=== PATIENT | male | born 1980 | race Caucasian/White ===

== ENCOUNTER 2018-06-27 14:26 | Outpatient (CLI) | payer BC, SELFPAY ==
--- NOTE | 2018-06-27 14:22 | DI.RAD_ITS ---
SYMPTOMS/DIAGNOSIS: LT KNEE PAIN, H/O TUBERCLE CONTUSION LEFT KNEE: Weight bearing views were performed. Comparison is made with left tibia and fibula dated [id number]. There is some swelling anterior to the tibial tubercle. There is no soft tissue calcification or focal bony prominence. No joint effusion is seen. The joint spaces are well maintained. IMPRESSION: Soft tissue swelling anterior to the tibial tubercle.
== END 2018-06-27 14:46 ==
PROVIDERS: PCP Internal Medicine; Visit Provider Student in an Organized Health Care Education/Training Program
DX: M25.562 Pain in left knee (principal); M79.89 Other specified soft tissue disorders
CPT/HCPCS: 73560

== ENCOUNTER 2018-07-12 10:10 | Day surgery (SDC) | payer BC, SELFPAY ==
[2018-07-12 10:35] VITALS: BP 119/73; PULSE 56; RESP 16; TEMP 36.5; O2SAT 98
[2018-07-12] MEDS: Lactated Ringers 1,000 ML 70 ML IV ×2 (11:10→14:31)
[2018-07-12] MEDS: ACETAMINOPHEN 1,000 MG/100 ML BTL 400 MG (11:51)
[2018-07-12] MEDS: Bupivacaine 0.25% Pres-Free 30 ML VIAL (13:35)
[2018-07-12] MEDS: Bupivacaine LIPOSOME/PF 133 MG/10 ML VIAL IJ ×2 (13:35→14:32)
[2018-07-12] MEDS: Lidocaine 1% Pres-Free 5 ML VIAL (13:54)
--- NOTE | 2018-07-12 14:01 | HERN_PTH ---
PATIENT: Elliot Bangura LOC: [facility] U#:[id number] AGE/SX: 38/M ROOM: RE07/12/[address]: Sundeep Mckinley DO : 1980 BED: DIS: 07/12/2018 SPEC #: [id number] RECD: 07/12/18 17:59 STATUS: SHIVAM REJulián #: [id number] JOANNA: 07/12/18 14:[address]: Sundeep Mckinley DEPT: Surgical Specimen RECD BY: Jodi Luna ENTERED: 07/12/18 18:00 SP TYPE: Hernia Sac OTHR DR: Denver Schumacher Tissues: 1 - HERNIA SAC, INGUINAL Procedures: GROSS LEVEL 1 Comments: [id number]
--- NOTE | 2018-07-12 14:47 | W.PM.OP ---
Date of service: 07/12/18 Time of Service: 14:48 Operative Note DATE OF PROCEDURE: 07/12/18 PRE-OP DIAGNOSIS: Right inguinal hernia POST-OP DIAGNOSIS: other (Right indirect inguinal hernia) PROCEDURE: Open Right Inguinal hernia repair SURGEON: Sundeep Mckinley CIRCUIT COURT JUDGE: Belen Bustamante ANESTHESIA: GETA (Via LMA: Erinn Medeiors CRNA; ASA 2 Mallampati class II) and local (TAP block; 1% lidocaine, 1.3% Exparel, and 0.5% Marcaine) ESTIMATED BLOOD LOSS: 1 PATHOLOGY: other (Hernia sac) COMPLICATIONS: None Patient was transported to: PACU Patient's condition: stable Implants: [employer] pro-heel layer anatomic right mesh lot number: [id number] Indications: 38 y/o male presents with complaints of a hernia near his right groin. He reports that this has been present for approximately 1 year. He denies noting any incident that may have caused the hernia. He noticed it one day in the mirror. He reports that he feels the hernia is progressively worsening and with activities such as performing firewood, at times he needs to take breaks and reduce the hernia secondary to discomfort. He denies the area ever becoming painful, firm to palpation or warm. He had a previous inguinal hernia repair on his left side. His current symptoms are similar to when he had his left inguinal hernia. I reviewed the procedure for open repair of an inguinal hernia, and discussed the risks of the procedure with him. All his questions were answered to his satisfaction, and no promises were made or guarantees given. Findings: Exploring the right inguinal canal, a indirect inguinal hernia sac was identified there is no evidence of a direct hernia or femoral hernia. The hernia was subsequently repaired Procedure Description: The patient was brought to the operating room. A time-out was completed verifying correct patient , procedure, site , allergies, medications, positioning, implants, and fire risk, prior to beginning the procedure. General anesthesia via LMA was induced. The right groin was prepped with chloraprep, and draped in the standard sterile fashion. The pubic tubercle, and anterior superior iliac spine (ASIS) were marked. A skin incision was marked starting just laterally to the pubic tubercle in a linear oblique fashion toward the ASIS. A field block was produced by injecting local along the proposed skin incision. Additional local was injected as needed during the case. I began by incising the previously marked incision line with a scalpel. The incision was deepened though Camille's and Camper's fascia with electocautery down until the aponeurosis of the external oblique was encountered. This was cleaned and the external ring exposed. Hemostasis was obtained in the wound with cautery. A stab incision was made in the midportion of the external oblique aponeurosis in the parallel to the fibers. Flaps of the external oblique were developed cephalad, and inferiorly. The cord was identified, gently dissected at the pubic tubercle, and encircled with a argelia drain, The cord was then explored, the vas deferens, and testicular vesicles were protected a indirect hernia sac was found anteromedially to the cord, which was subsequently dissected, twisted, and suture ligated after its contents were reduced The redundant sac was sent for pathology, and the remainder reduced. The femoral canal was palpated and no hernia was identified. I then placed a mesh, [employer] pro-heel layer anatomic left lot number [id number], to re-enforce the floor of the inguinal canal, and create a new internal ring. The floor of the inguinal canal was cleaned medially over the pubic tubercle, cephalad over the conjoint tendon, laterally over the aponeurosis of the internal oblique, and inferiorly the inguinal ligament. A mesh was then laid in the floor of the canal with the mesh overlying the pubic tubercle medially, conjoint tendon cephalad, internal oblique aponeurosis laterally, and shelving edge of inguinal ligament inferiorly. The mesh was then inspected for apposition to the tissue, and pressed into place. The tip of a Debakey forceps easily passed through the new internal ring next the cord structures. The wound was then irrigated. Hemostasis again checked, and argelia drain removed. I closed the wound in layers, with 2-0 vicryl for the external oblique in a running fashion, 3-0 vicryl to approximate Camille's fascia, and the skin was closed with 4-0 vicryl with a running subcuticular fashion. A dressing was applied. The count was reported correct times two. No apparent complications during the case. The patient was brought to the PACU in good condition.
[2018-07-12 14:49] VITALS: BP 132/93; PULSE 56; RESP 12; TEMP 36.6; O2SAT 99
[2018-07-12 14:54] VITALS: BP 137/80; PULSE 62; RESP 13; TEMP 36.5; O2SAT 100
[2018-07-12 14:59] VITALS: BP 126/89; PULSE 60; RESP 12; TEMP 36.5; O2SAT 99
--- NOTE | 2018-07-12 15:00 | ROE_ITS ---
Date of service: 07/12/18 Time of Service: 14:48 Operative Note DATE OF PROCEDURE: 07/12/18 PRE-OP DIAGNOSIS: Right inguinal hernia POST-OP DIAGNOSIS: other (Right indirect inguinal hernia) PROCEDURE: Open Right Inguinal hernia repair SURGEON: Sundeep Mckinley LOCAL SALES MANAGER: Belen Bustamante ANESTHESIA: GETA (Via LMA: Erinn Medeiros CRNA; ASA 2 Mallampati class II) and local (TAP block; 1% lidocaine, 1.3% Exparel, and 0.5% Marcaine) ESTIMATED BLOOD LOSS: 1 PATHOLOGY: other (Hernia sac) COMPLICATIONS: None Patient was transported to: PACU Patient's condition: stable Implants: [employer] pro-key operator anatomic right mesh lot number: [id number] Indications: 38 y/o male presents with complaints of a hernia near his right groin. He reports that this has been present for approximately 1 year. He denies noting any incident that may have caused the hernia. He noticed it one day in the mirror. He reports that he feels the hernia is progressively worsening and with activities such as performing firewood, at times he needs to take breaks and reduce the hernia secondary to discomfort. He denies the area ever becoming painful, firm to palpation or warm. He had a previous inguinal hernia repair on his left side. His current symptoms are similar to when he had his left inguinal hernia. I reviewed the procedure for open repair of an inguinal hernia , and discussed the risks of the procedure with him. All his questions were answered to his satisfaction, and no promises were made or guarantees given. Findings: Exploring the right inguinal canal, a indirect inguinal hernia sac was identified there is no evidence of a direct hernia or femoral hernia. The hernia was subsequently repaired Procedure Description: The patient was brought to the operating room. A time-out was completed verifying correct patient , procedure, site , allergies, medications, positioning, implants, and fire risk, prior to beginning the procedure. General anesthesia via LMA was induced. The right groin was prepped with chloraprep, and draped in the standard sterile fashion. The pubic tubercle, and anterior superior iliac spine (ASIS) were marked. A skin incision was marked starting just laterally to the pubic tubercle in a linear oblique fashion toward the ASIS. A field block was produced by injecting local along the proposed skin incision. Additional local was injected as needed during the case. I began by incising the previously marked incision line with a scalpel. The incision was deepened though Camille's and Camper's fascia with electocautery down until the aponeurosis of the external oblique was encountered. This was cleaned and the external ring exposed. Hemostasis was obtained in the wound with cautery. A stab incision was made in the midportion of the external oblique aponeurosis in the parallel to the fibers. Flaps of the external oblique were developed cephalad, and inferiorly. The cord was identified, gently dissected at the pubic tubercle, and encircled with a argelia drain, The cord was then explored, the vas deferens, and testicular vesicles were protected a indirect hernia sac was found anteromedially to the cord, which was subsequently dissected, twisted, and suture ligated after its contents were reduced The redundant sac was sent for pathology, and the remainder reduced. The femoral canal was palpated and no hernia was identified. I then placed a mesh, [employer] pro-key operator anatomic left lot number [id number], to re -enforce the floor of the inguinal canal, and create a new internal ring. The floor of the inguinal canal was cleaned medially over the pubic tubercle, cephalad over the conjoint tendon, laterally over the aponeurosis of the internal oblique, and inferiorly the inguinal ligament. A mesh was then laid in the floor of the canal with the mesh overlying the pubic tubercle medially, conjoint tendon cephalad, internal oblique aponeurosis laterally, and shelving edge of inguinal ligament inferiorly. The mesh was then inspected for apposition to the tissue, and pressed into place. The tip of a Debakey forceps easily passed through the new internal ring next the cord structures. The wound was then irrigated. Hemostasis again checked, and argelia drain removed. I closed the wound in layers, with 2-0 vicryl for the external oblique in a running fashion, 3-0 vicryl to approximate Camille's fascia, and the skin was closed with 4-0 vicryl with a running subcuticular fashion. A dressing was applied. The count was reported correct times two. No apparent complications during the case. The patient was brought to the PACU in good condition.
--- NOTE | 2018-07-12 15:01 | W.PM.DSUDISC ---
Discharge Plan Disposition Patient Disposition: HOME Condition: Good Discharge Details Reason For Visit: (R) INGUINAL HERNIA Attending Provider: Sundeep Mckinley Primary Care Provider: Denver Schumacher Home Meds and New Rx's Prescriptions: New acetaminophen [Tylenol] 325 mg Tablet 650 mg PO Q4H PRN PRNQty: 30 RF: 0 tramadol 50 mg Tablet 50 mg PO Q6H PRN PRNQty: 12 RF: 0 ibuprofen 200 mg capsule 600 mg PO QID PRN (Reason: inguinal hernia repair) Qty: 30 RF: 0 Continue loratadine 10 MG tablet 10 mg PO DAILY RF: 0 Discharge Instructions Instructions: Inguinal Hernia Repair (DC) Additional Instructions: Dr. Sundeep Mckinley Post-Operative Discharge Instructions 1. Because there will be medication in your system for the next 24 hours, you may feel a little sleepy. Your coordination will be affected. Therefore: Do not drive or operate dangerous equipment for 24 hours. Do not drink alcohol beverages for 24 hours (not even beer). Plan to go home and rest for the day. Restrictions: Do not lift, push, or nail puller 20lbs for 6weeks. No strenuous bending or twisting for 6 weeks, if it hurts stop. No baths, you can shower. Let warm soapy water run over wound, then pat wound dry. Activity: The day of surgery spend most of the day resting in a comfortable bed or recliner. 2-3 times during the day get up and walk around the house. The day after surgery, or after your discharge, walk at least 3 times a day and spend increasing amounts of time walking and sitting up. If you are tired rest, but keep moving as able. Continue Incentive Spirometry at home if you were performing this therapy in the hospital. Diet: Resume home diet as tolerated. Start with a light diet, your appetite will improve with time. Drink at least 4-6 glasses of water per day to keep hydrated. Wound Care: Removed dressing in 24 hrs, skin glue below will wear off in 2-3 weeks You may cover the wound with a dry sterile dressing to keep clothing from rubbing against the wound. Continue all your regular medications unless directed otherwise. Call the office or the Hospital Equipment Validation Specialist , If you have: Pain not controlled with pain medication. Nausea and vomiting. Temperature greater than 101 degrees Fahrenheit. Drainage from your wound that soaks through your dressing. *No more than 4000 milligrams of Tylenol in 24 hours. Narcotic pain medication can be constipating, if you have not had a bowel movement within 3 days use a laxative, I recommend Milk of Magnesia (MOM) 1oz. every 6 hrs until you have a bowel movement. I understand the above instructions and have no questions. Signature of Patient or Responsible Adult Escort Date/Time Name of Responsible Adult Escort Signature of Nurse Date/Time Revised 12/29/10 Referrals: Sundeep Mckinley DO [ [facility] STAFF PHYSICIAN] - 08/03/18 9:45 am (Follow up after inguinal hernia repair) Activity:: see instructions Remove Dressings/Wound Care:: 24 hours Shower/Bathe:: 24 hours Diet:: Normal Diet Discharge Orders Discharge Orders: Discharge Order (Routine); Ordered 07/12/18 Ordered By: Sundeep Mckinley DS: Diagnosis Discharge Diagnosis (1) Right inguinal hernia: Start date: 07/12/18 Start time: 15:01 Status: Acute Asessment and Plan: Open repair of right inguinal hernia:
--- NOTE | 2018-07-12 15:02 | PDOC.DSDIS_ITS ---
Discharge Plan Disposition Patient Disposition: HOME Condition: Good Discharge Details Reason For Visit: (R) INGUINAL HERNIA Attending Provider: Sundeep Mckinley Primary Care Provider: Denver Schumacher Home Meds and New Rx's Prescriptions: New acetaminophen [Tylenol] 325 mg Tablet 650 mg PO Q4H PRN PRNQty: 30 RF: 0 tramadol 50 mg Tablet 50 mg PO Q6H PRN PRNQty: 12 RF: 0 ibuprofen 200 mg capsule 600 mg PO QID PRN (Reason: inguinal hernia repair) Qty: 30 RF: 0 Continue loratadine 10 MG tablet 10 mg PO DAILY RF: 0 Discharge Instructions Instructions: Inguinal Hernia Repair (DC) Additional Instructions: Dr. Sundeep Mckinley Post-Operative Discharge Instructions 1. Because there will be medication in your system for the next 24 hours, you may feel a little sleepy. Your coordination will be affected. Therefore: * Do not drive or operate dangerous equipment for 24 hours. * Do not drink alcohol beverages for 24 hours (not even beer). * Plan to go home and rest for the day. Restrictions: * Do not lift, push, or pick pulling machine tender 20lbs for 6weeks. * No strenuous bending or twisting for 6 weeks, if it hurts stop. * No baths, you can shower. Let warm soapy water run over wound, then pat wound dry. Activity: * The day of surgery spend most of the day resting in a comfortable bed or recliner. 2-3 times during the day get up and walk around the house. * The day after surgery, or after your discharge, walk at least 3 times a day and spend increasing amounts of time walking and sitting up. If you are tired rest, but keep moving as able. * Continue Incentive Spirometry at home if you were performing this therapy in the hospital. Diet: * Resume home diet as tolerated. * Start with a light diet, your appetite will improve with time. * Drink at least 4-6 glasses of water per day to keep hydrated. Wound Care: * Removed dressing in 24 hrs, skin glue below will wear off in 2-3 weeks * You may cover the wound with a dry sterile dressing to keep clothing from rubbing against the wound. Continue all your regular medications unless directed otherwise. Call the office or the Hospital Stitchdown Thread Laster , If you have: * Pain not controlled with pain medication. * Nausea and vomiting. * Temperature greater than 101 degrees Fahrenheit. * Drainage from your wound that soaks through your dressing. *No more than 4000 milligrams of Tylenol in 24 hours. Narcotic pain medication can be constipating, if you have not had a bowel movement within 3 days use a laxative, I recommend Milk of Magnesia (MOM) 1oz. every 6 hrs until you have a bowel movement. I understand the above instructions and have no questions. _ Signature of Patient or Responsible Adult Escort Date/Time _ Name of Responsible Adult Escort _ Signature of Nurse Date/Time Revised 12/29/10 Referrals: Sundeep Mckinley DO [ [facility] STAFF PHYSICIAN] - 08/03/18 9:45 am (Follow up after inguinal hernia repair) Activity:: see instructions Remove Dressings/Wound Care:: 24 hours Shower/Bathe:: 24 hours Diet:: Normal Diet Discharge Orders Discharge Orders: Discharge Order (Routine); Ordered 07/12/18 Ordered By: Sundeep Mckinley DS: Diagnosis Discharge Diagnosis (1) Right inguinal hernia: Start date: 07/12/18 Start time: 15:01 Status: Acute Asessment and Plan: Open repair of right inguinal hernia:
[2018-07-12 15:14] VITALS: BP 137/89; PULSE 64; RESP 13; TEMP 36.5; O2SAT 99
[2018-07-12] MEDS: traMADol 50 MG TAB PO (15:44)
[2018-07-12 15:45] VITALS: BP 138/89; PULSE 62; RESP 16; TEMP 36.1; O2SAT 100
== END 2018-07-12 16:35 | disposition home or self-care (01) ==
PROVIDERS: PCP Internal Medicine; Visit Provider Surgery
PROC: (CPT 49505; principal; 2018-07-12 11:00)
DX: K40.90 Unilateral inguinal hernia, without obstruction or gangrene, not specified as recurrent (principal)
CPT/HCPCS: 49505; 76942; 88300; C1781; J0131; J0690; J1100; J1885; J2250; J3010

== ENCOUNTER 2018-07-25 14:50 | Outpatient (CLI) | payer BC, SELFPAY ==
--- NOTE | 2018-07-25 14:49 | DI.US_ITS ---
SYMPTOMS/DIAGNOSIS: S/P RT INGUINAL HERNIA REPAIR, ? SEROMA/FLUID COLLECTION, K40.90 INGUINAL HERNIA SOFT TISSUE ULTRASOUND: Soft tissue ultrasound was performed to evaluate region of recent right inguinal hernia repair incision. There is a 7 x 2 x 5 cm in diameter mildly heterogeneous mildly septated well circumscribed fluid collection consistent with hematoma or seroma. No doppler evidence of internal vascularity, no specific evidence of abscess.
== END 2018-07-25 15:10 ==
PROVIDERS: PCP Internal Medicine; Visit Provider Physical Therapy Assistant
DX: K40.90 Unilateral inguinal hernia, without obstruction or gangrene, not specified as recurrent (principal); Z98.890 Other specified postprocedural states; L76.34 Postprocedural seroma of skin and subcutaneous tissue following other procedure
CPT/HCPCS: 76857

== ENCOUNTER 2021-07-23 12:52 | Outpatient (CLI) | payer BC, SELFPAY ==
[2021-07-24 02:57] LABS: COVID-19 RT-PCR UVMMC Result Negative (Negative)
== END 2021-07-23 12:53 | disposition home or self-care (01) ==
LOC: LBO 12:52
PROVIDERS: PCP Internal Medicine; Visit Provider Nurse Practitioner Family
DX: Z20.822 Contact with and (suspected) exposure to COVID-19 (principal)
CPT/HCPCS: U0003

== ENCOUNTER 2022-04-23 09:53 | Outpatient (REF) | payer BC, SELFPAY ==
[2022-04-23 16:03] LABS: Anion Gap 7.8 mmol/L (3-11); BUN 25 mg/dL (7-18); CO2 32.2 mmol/L (21.0-32.0); CREATININE 0.9 mg/dL (0.70-1.30); Calcium 9.3 mg/dL (8.5-10.1); Calculated LDL 90 mg/dL (<100); Chloride 101 mmol/L (98-107); Cholesterol 192 mg/dL (<200); Glucose 95 mg/dL (74-106); HDL Cholesterol 81 mg/dL (40-60); Potassium 4.4 mmol/L (3.5-5.1); Sodium 141 mmol/L (136-145); Triglyceride 105 mg/dL (<150)
[2022-04-23 16:36] LABS: Hemoglobin A1C 5.4 % (<5.7)
== END 2022-04-23 09:54 | disposition home or self-care (01) ==
LOC: NCHCN 09:53
PROVIDERS: PCP Internal Medicine; Visit Provider Family Medicine
DX: R03.0 Elevated blood-pressure reading, without diagnosis of hypertension (principal); Z13.1 Encounter for screening for diabetes mellitus; Z13.220 Encounter for screening for lipoid disorders
CPT/HCPCS: 80048; 80061; 83036

== ENCOUNTER 2023-08-24 06:57 | Day surgery (SDC) | payer BC, SELFPAY ==
[2023-08-24 07:14] VITALS: BP 126/93; PULSE 54; RESP 16; TEMP 36.6; O2SAT 99
[2023-08-24] MEDS: Lactated Ringers 1,000 ML 80 ML IV (08:05)
--- NOTE | 2023-08-24 08:08 | W.ANESPRE ---
General Info Date of Service Date Performed: 08/24/23 Height: 6 ft 1 in Weight: 85.1 kg Body Mass Index (BMI): 24.7 Surgical Procedure: Operation Date: 08/24/23 08:20 Proposed Procedure Side Surgeon candy Dow MD Meds Allergies and Home Medications Allergies Allergy/AdvReac Type Severity Reaction Status Date / Time No Known Drug Allergies Allergy Unknown Verified 08/24/23 07:13 Home Medication Medication Instructions Recorded loratadine 10 mg tablet 10 mg PO DAILY 02/17/17 acetaminophen 325 mg tablet 650 mg (2 x 325 mg) PO Q4H PRN PRN 07/12/18 (Tylenol) #30 tabs ibuprofen 200 mg capsule 600 mg (3 x 200 mg) PO QID PRN 07/12/18 inguinal hernia repair #30 caps fluticasone propionate 50 2 spray intranasal DAILY 08/05/23 mcg/actuation nasal spray,suspension (Flonase Allergy Relief) sodium chloride 0.65 % nasal spray 2 spray intranasal Q2H PRN 08/05/23 aerosol (Saline Nasal) Current Visit Medications: Current Medications Generic Name Dose Route Start Last Admin Trade Name Freq PRN Reason Stop Dose Admin Ringer's Solution 1,000 mls @ 80 mls/hr 08/24/23 06:00 IV 08/24/23 23:59 INFUSION GABRIELLA IV Miscellaneous Supplies 1 each 08/24/23 06:00 Iv Access IV 08/24/23 23:59 DIRECTED GABRIELLA Sodium Chloride 0 ml 08/24/23 06:00 Normal Saline Flush 10 Ml Syr IV 08/24/23 23:59 PRN PRN Sodium Chloride 0 ml 08/24/23 06:00 Normal Saline 10 Ml Vial IJ 08/24/23 23:59 DIRECTED PRN Sterile Water 0 ml 08/24/23 06:00 Water,Injection,Sterile 10 Ml Vial IJ 08/24/23 23:59 DIRECTED PRN PFSH Active Problems Active Problems: Problem Status Onset Code Dermatitis L30.9 Follow up Z09 Follow-up arranged for 2 weeks History of right lateral epicondylitis Z87.39 Contusion of left knee S80.02XA Right inguinal hernia K40.90 Nasal congestion 02/22/17 R09.81 Hypertrophy of nasal turbinates 02/22/17 J34.3 Deviated nasal septum 02/22/17 J34.2 Medical History Medical History Anxiety Medical History Comments:: Per pt. states he does not come out of anesthesia well, (pt. can't really elaborate clearly), states he needs to be brought out slower than normal. Surgical History Surgical History H/O bilateral inguinal hernia repair Right 2017 - dr crawford, Left 2011 Tobacco Smoking/Tobacco Use Status: Never Alcohol Alcohol Intake: current Alcohol intake frequency: 0-2 drinks per day Alcohol type: beer Substance Use Substance use: Occasionally Substance use type: marijuana Details: Edibles Vital Signs and Lab Results Vital Signs Most Recent Vital Signs in EMR: Most Recent Vital Signs Temp Pulse Resp BP Pulse Ox 36.6 C 54 L 16 126/93 H 99 08/24/23 07:14 08/24/23 07:14 08/24/23 07:14 08/24/23 07:14 08/24/23 07:14 Lab Results Blood Type / Crossmatch: No Data to Display Complete Blood Count: No Data to Display Complete Metabolic Panel: No Data to Display Liver Function Panel: No Data to Display Coagulation Panel: No Data to Display Cardiac Panel: No Data to Display Arterial Blood Gas: No Data to Display Venous Blood Gas: No Data to Display Pancreas Panel: No Data to Display Thyroid Panel: No Data to Display Infectious Disease: No Data to Display Blood Cultures: No Data to Display Toxicology Panel: No Data to Display Anesthesia Assessment and Plan Anesthesia History Personal History: Other Family History: No Family History of Anesthesia Complications Exercise Tolerance Exercise Tolerance: Metabolic Equivalents>4 Pertinent Negatives Pertinent Negatives: No Symptoms of GERD, No Major Cardiovascular Symptoms or Complaints and No Major Pulmonary Symptoms or Complaints Cardiac & Pulmonary Exam Cardiac Exam: Normal S1/S2 Heart Sounds Pulmonary Exam: Clear Bilateral Breath Sounds Implantable Cardiac Device Does patient have a Pacemaker or an ICD?: No Airway Exam Known Difficult Airway: No Mallampati Class: 1 Mouth Opening: Normal (> 3cm) Thyromental Distance: Greater than 3 cm Neck Range of Motion: Full ROM Neck Circumference: Normal Teeth Condition: Normal Dentition ASA Classification ASA Score: ASA 2 Emergency Case?: No NPO Status NPO Status: NPO Clears >2 hours, Solids >8 hours Anesthesia Plan Resuscitation Status: Full Code Anesthesia Technique: General Anesthesia Airway Planned: Natural Airway Monitors Used: Standard Monitors
[2023-08-24 08:09] VITALS: BMI 24.7
--- NOTE | 2023-08-24 08:11 | COLE_ITS ---
Date of service: 08/24/23 Time of Service: 08:35 Colonoscopy Report Procedure Description: PROCEDURES PERFORMED: 1. Colonoscopy PREOPERATIVE DIAGNOSIS: Screening colonoscopy POSTOPERATIVE DIAGNOSIS: This normal SURGEON: Christa Dow MD INDICATION for procedure: 43-year-old man with no symptoms and no family history of colon cancer due for his first screening. FINDINGS: Normal terminal ileum. No polyps. No inflammation. No hemorrhoid disease. No diverticular disease. SURVEILLANCE-INTERVAL/FOLLOW-UP: 10 years. Specimens: None EBL: Minimal COMPLICATIONS: None QUALITY of prep: Excellent Procedure in detail: The patient gave written consent and was in agreement with the indications, the potential risks as well as the benefits of the procedure. They were taken to the endoscopy suite and laid in the left lateral decubitus position. A timeout was performed and anesthesia was administered which was tolerated well. I started the procedure. Digital rectal and visual examination was performed and grossly within normal limits. A well-lubricated flexible colonoscope was then introduced and passed without any notable difficulty all the way to the cecum identified by the ileocecal valve and the appendiceal orifice. The terminal ileum was briefly int ubated and looked normal visually. The scope was then slowly withdrawn with the above-noted findings. The patient tolerated the procedure well and was taken to the PACU in hemodynamically stable condition.
--- NOTE | 2023-08-24 08:41 | W.PM.DSUDISC ---
Date of service: 08/24/23 Time of Service: 08:41 Discharge Plan Disposition Patient Disposition: Home Condition: Good Discharge Details Attending Provider: Adrián Dow Primary Care Provider: Elida Samuels Home Meds and New Rx's Prescriptions: No Action Saline Nasal 0.65 % aerosol,spray 2 spray intranasal Q2H PRN fluticasone propionate [Flonase Allergy Relief] 50 mcg/actuation spray,suspension 2 spray intranasal DAILY Rx Instructions: administer into each nostril loratadine 10 MG tablet 10 mg PO DAILY acetaminophen [Tylenol] 325 mg Tablet 650 mg PO Q4H PRN PRNQty: 30 0RF ibuprofen 200 mg capsule 600 mg PO QID PRN (Reason: inguinal hernia repair) Qty: 30 0RF Discharge Instructions Additional Instructions: FINDINGS: Your small intestine, colon and rectum appear healthy and normal. No polyps. Repeat colonoscopy in 10 years. Stand Alone Forms: Colonoscopy Post Instructions Activity:: Activity as Tolerated Diet:: As Tolerated
[2023-08-24 08:43] VITALS: BP 117/79; PULSE 57; RESP 18; TEMP 36.2; O2SAT 98
--- NOTE | 2023-08-24 08:50 | W.ANESPOSTOP ---
Postoperative Evaluation Date, Time and Location Date Performed: 08/24/23 Time Performed: 08:50 Patient Location: Day Surgery Unit Vital Signs Most Recent Imported Vital Signs: Most Recent Vital Signs Temp Pulse Resp BP Pulse Ox 36.2 C L 57 L 18 117/79 98 08/24/23 08:43 08/24/23 08:43 08/24/23 08:43 08/24/23 08:43 08/24/23 08:43 Pain Score Most Recent Pain Score: Most Recent Pain Score Pain Level 0 08/24/23 08:43 Assessment Mental Status: Awake (Alert & Oriented to Patient Baseline) Airway and Respiratory Function: Patent airway with normal (patient baseline) respiratory exam Cardiovascular Function: Hemodynamically Stable Hydration Status: Adequately Hydrated Nausea & Vomiting: No Nausea or Vomiting Pain: Pt. Denies Any Pain Peripheral Nerve Block: Patient did not receive a nerve block
[2023-08-24 08:57] VITALS: BP 118/80; PULSE 61; RESP 18; TEMP 36.2; O2SAT 98
== END 2023-08-24 09:14 | disposition home or self-care (01) ==
PROVIDERS: PCP Family Medicine; Visit Provider Student in an Organized Health Care Education/Training Program
PROC: 0DJD8ZZ Inspection of Lower Intestinal Tract, Via Natural or Artificial Opening Endoscopic (ICD-10-PCS; CPT 45378; principal; 2023-08-24 08:15)
DX: Z12.11 Encounter for screening for malignant neoplasm of colon (principal)
CPT/HCPCS: 45378; 00123; J2001